=== PATIENT | male | born 1970 | race Caucasian/White ===

== ENCOUNTER 2016-06-30 20:03 | Emergency (ER) | payer BC ==
[~2016-06-30] VITALS: Ht 177.8 cm; Wt 81.6 kg
[~2016-06-30 20:03] MED LIST: MOTRIN
[2016-06-30 20:15] VITALS: BP 140/72; PULSE 115; RESP 16; TEMP 99.2; O2SAT 97
--- NOTE | 2016-06-30 20:36 | NUR ---
Patient to ER bed 3 to gown for evaluation. Side rails up. Report given to LINH BANKS.
--- NOTE | 2016-06-30 21:00 | NUR ---
Patient given written and verbal discharge instructions and verbalizes understanding. ER MD discussed with patient the results and treatment provided. Given copies of tests performed in ER. Patient in stable condition. ID arm band removed. IV catheter removed intact and dressing applied, no active bleeding. Rx of Motrin given. Patient educated on pain management and to follow up with PMD. Pain Scale 2/10 Opportunity for questions provided and answered.
--- NOTE | 2016-06-30 21:00 | NUR ---
Pt came from home, c/o having cold and dry cough since Wednesday. Pt states he has heart palpitation, headache with pain score 4/10. Pt denies SOB, N/V. aware. Continue to monitor
--- NOTE | 2016-06-30 21:00 | NUR ---
ER ALTAGRACIA Sánchez at bedside examining patient.
[2016-06-30] MEDS ORDERED: KETOROLAC TROMETHAMINE 30 MG VIAL IVP ONE (21:15)
[2016-06-30] MEDS ORDERED: NACL 0.9% 1,000 ML IV ONE (21:15)
[2016-06-30 22:51] VITALS: BP 129/60; PULSE 90; RESP 16; TEMP 99.2; O2SAT 97
== END 2016-06-30 21:00 | disposition home or self-care (01) ==
LOC: SED 20:03
DX: J11.1 Influenza due to unidentified influenza virus with other respiratory manifestations (principal); R03.0 Elevated blood-pressure reading, without diagnosis of hypertension
CPT/HCPCS: 36415; 86710; 93005; 96361; 96374; 99285; J1885; J7030; 96360